=== PATIENT | male | born 1975 | race Hispanic/Latino ===

== ENCOUNTER 2022-12-25 15:12 | Emergency (ER) | payer SELFPAY ==
[~2022-12-25] VITALS: Ht 167.6 cm; Wt 92.5 kg
[2022-12-25 15:25] VITALS: O2SAT 97
[2022-12-25] MEDS ORDERED: KETOROLAC TROMETHAMINE 60 MG/2 ML VIAL ONE (15:35)
[2022-12-25] MEDS ORDERED: LIDOCAINE 4% PATCH TP ONE (15:36)
[2022-12-25] MEDS ORDERED: DEXAMETHASONE4 MG PO (15:39)
[2022-12-25] MEDS ORDERED: LMX 45 G1 TOP (15:39)
[2022-12-25] MEDS ORDERED: KETOROLAC TROMETHAMINE 60 MG/2 ML VIAL IM ONE (15:45)
[2022-12-25] MEDS ORDERED: LIDOCAINE 4% PATCH TP SCH (16:00)
== END 2022-12-25 15:45 | disposition home or self-care (01) ==
LOC: ER 15:25
DX: M54.42 Lumbago with sciatica, left side (principal); M54.41 Lumbago with sciatica, right side
CPT/HCPCS: 99283; J1885

== ENCOUNTER 2024-07-09 16:21 | Emergency (ER) | payer SELFPAY ==
[~2024-07-09 16:21] MED LIST: DEXAMETHASONE4 MG PO; LMX 45 G1 TOP
== END 2024-07-09 19:06 | disposition short-term general hospital (02) ==
LOC: ER 18:20
DX: M25.529 Pain in unspecified elbow (principal)